=== PATIENT | female | born 1970 | race Caucasian/White ===

== ENCOUNTER 2017-10-31 19:07 | Emergency (ER) | payer OTHER ==
[~2017-10-31] VITALS: Ht 157.5 cm; Wt 98.0 kg
[2017-10-31] MEDS ORDERED: HYDR25TA PO (19:24)
[2017-10-31 21:28] VITALS: BP 133/82
[2017-10-31] MEDS ORDERED: ACETAMINOPHEN 500 MG TABLET PO ONE (21:45)
[2017-10-31] MEDS ORDERED: LORazepam 1 MG TABLET PO ONE (21:45)
== END 2017-10-31 22:06 | disposition home or self-care (01) ==
LOC: EMS 19:08
DX: I10 Essential (primary) hypertension (principal); F41.9 Anxiety disorder, unspecified
CPT/HCPCS: 99283